=== PATIENT | female | born 1955 | race Caucasian/White ===

== ENCOUNTER 2016-10-02 21:11 | Emergency (ER) | payer OTHER ==
[~2016-10-02] VITALS: Ht 172.7 cm; Wt 111.0 kg
[~2016-10-02 21:11] MED LIST: DICL50TA2 PO; HYDR-2768 PO; SYNT175T PO
[2016-10-02 21:15] VITALS: BP 191/111; PULSE 85; RESP 18; TEMP 97.9; O2SAT 97
[2016-10-02 21:37] VITALS: BP 196/94; PULSE 77; RESP 20; O2SAT 96
--- NOTE | 2016-10-02 21:55 | PD ---
HPI Chief Complaint: Edema Time Seen by Provider: 21:51 Travel History International Travel<30 days: No Contact w/Intl Traveler<30days: No Traveled to known affect area: No History of Present Illness HPI The patient is a 60-year-old female that complains of left calf pain and swelling since this weekend. The patient denies any fever, shortness of breath , chest pain or hemoptysis. She has never had deep vein thromboses in the past. She states she has been doing a lot of driving the last few weeks between here and [place]. PFSH Past Medical History Arthritis: Yes Anxiety: Yes Cancer: No Cardiovascular Problems: Yes (HTN) High Cholesterol: Yes Diminished Hearing: No Endocrine: Yes Gastrointestinal Disorders: Yes (CURRENT POLYP) Genitourinary: No Hypertension: Yes Immune Disorder: No Musculoskeletal: Yes Neurologic: No Psychiatric: Yes (CLAUSTRAPHOBIA) Reproductive: No Respiratory: No Immunizations Current: No Thyroid Disease: Yes Tetanus Vaccination: Unknown ?: Not Menopausal: Yes Past Surgical History Abdominal Surgery: Yes (REMOVED PART OF COLON IN 2010) Cholecystectomy: Yes Gynecologic Surgery: Yes (C SECTION) Other Surgery: Yes Social History Alcohol Use: Yes (OCCASIONAL) Tobacco Use: No (QUIT 1997) Substance Use: No Allergies-Medications (Allergen,Severity, Reaction): Coded Allergies: Colyte (Verified Allergy, Severe, Hives, 10/02/16) PEANUTS (Verified Allergy, Mild, Anaphylaxis, 10/02/16) Sulfa (Verified Allergy, Unknown, RASH, 10/02/16) Reported Meds & Prescriptions Reported Meds & Active Scripts Active Reported Levothyroxine (Levothyroxine Sodium) 125 Mcg Tab 125 Mcg PO DAILY Doxycycline (Doxycycline (Monohydrate)) 100 Mg Cap 100 Mg PO DAILY Hydrochlorothiazide 25 Mg Tab 25 Mg PO DAILY Review of Systems Except as stated in HPI: all other systems reviewed are Neg Physical Exam Narrative GENERAL: The patient is alert, oriented 3 in minimal apparent distress with her left calf vein area initial vital signs show blood pressure 191/111 but repeat show 196/94 but the rest the vital signs are normal. SKIN: Focused skin assessment warm/dry. HEAD: Atraumatic. Normocephalic. EYES: Pupils equal and round. No scleral icterus. No injection or drainage. ENT: No nasal bleeding or discharge. Mucous membranes pink and moist. NECK: Trachea midline. No JVD. CARDIOVASCULAR: Regular rate and rhythm. No murmur appreciated. RESPIRATORY: No accessory muscle use. Clear to auscultation. Breath sounds equal bilaterally. GASTROINTESTINAL: Abdomen soft, non-tender, nondistended. Hepatic and splenic margins not palpable. MUSCULOSKELETAL: No obvious deformities. No clubbing. No cyanosis. There is redness circumferentially around the mid calf as well as tenderness of the left calf. No cord is palpated in the calf. There is no tenderness on the deep veins of the left upper extremity. Good capillary refill and pulses are felt on the left dorsalis pedis/left foot. NEUROLOGICAL: Awake and alert. No obvious cranial nerve deficits. Motor grossly within normal limits. Normal speech. PSYCHIATRIC: Appropriate mood and affect; insight and judgment normal. Data Data Last Documented VS Vital Signs Date Time Temp Pulse Resp B/P Pulse Ox O2 Delivery O2 Flow Rate FiO2 10/02/16 21:37 20 96 Room Air 10/02/16 21:37 77 196/94 10/02/16 21:15 97.9 Orders Us Leg Venous Doppler (10/02/16 21:51) MDM Medical Decision Making Medical Screen Exam Complete: Yes Emergency Medical Condition: Yes Medical Record Reviewed: Yes Interpretation(s) The ultrasound shows no evidence of DVT. Differential Diagnosis DVT, cellulitis left lower extremity, allergic reaction left lower extremity, contact dermatitis left lower extremity Narrative Course The patient has cellulitis of the left lower extremity. There is no ultrasound evidence for DVT. Plan: The patient will be put on doxycycline and clindamycin. She needs to elevate her leg above her heart as much as possible. Additional Instructions: Elevate the leg above your heart and take the antibiotics. Both antibiotics are for 10 days. Follow-up with your primary care physician next week. Med/Other Pt SpecificInfo: Prescription(s) given Scripts Clindamycin (Cleocin)300 Mg [id number] Mg PO Q6H 10 Days Ref 0 Prov:Mansoor Garrett MD 10/02/16 Doxycycline Hyclate 100 Mg [id number] Mg PO BID #20 CAP Ref 0 Prov:Mansoor Garrett MD 10/02/16 Disposition: 01 DISCHARGE HOME Condition: Stable Mansoor Garrett MD Oct 02, 2016 21:55
[2016-10-02] MEDS ORDERED: HYDR25TA5 PO (21:57)
[2016-10-02] MEDS ORDERED: DOXY1CAP91 PO (21:57)
[2016-10-02] MEDS ORDERED: LEVO125T4 PO (22:06)
--- NOTE | 2016-10-02 22:48 | RADRPT ---
EXAM DATE/TIME: 10/02/2016 22:20 [facility] COMPARISON: No previous studies available for comparison. INDICATIONS : Left leg swelling. MEDICAL HISTORY : Hypertension. Hypercholesterolemia. Thyroid disease. Gastrointestinal polyp. Arthritis. Endocrine disorder. Neutrapenia. SURGICAL HISTORY : Cholecystectomy. section. Colon resection. ENCOUNTER: Initial ACUITY: 4 - 6 days PAIN SCORE: 3/10 LOCATION: Left leg. TECHNIQUE: Venous ultrasound of the leg was performed from the inguinal ligament to the proximal calf. Real-clairssa e, color Doppler and spectral tracing, compression and augmentation techniques were used. FINDINGS: There is normal compressibility of the deep venous system from the inguinal region to the proximal ca lf. No echogenic clot is seen in the lumen of the common femoral, femoral, popliteal, and posterior tibial veins. There is a normal response of the venous system to proximal and distal augmentation an d respiration. CONCLUSION: Negative exam with no evidence of deep venous thrombosis. Jaylen Cole MD on October 02, 2016 at 22:46 Board Certified Radiologist. This report was verified electronically.
[2016-10-02 22:50] VITALS: BP 143/77; PULSE 78; RESP 18; O2SAT 96
[2016-10-02] MEDS ORDERED: CLEO300C2 PO (23:05)
[2016-10-02] MEDS ORDERED: DOXY100C PO (23:05)
[2016-10-02] MEDS ORDERED: DOXYCYCLINE HYCLATE 100 MG CAP PO ONE (23:15)
[2016-10-02] MEDS ORDERED: CLINDAMYCIN 150 MG CAP PO ONE (23:15)
== END 2016-10-02 23:51 | disposition home or self-care (01) ==
LOC: PHED 21:11
DX: L03.116 Cellulitis of left lower limb (principal); I10 Essential (primary) hypertension; E78.00 Pure hypercholesterolemia, unspecified; E07.9 Disorder of thyroid, unspecified; Z90.49 Acquired absence of other specified parts of digestive tract
CPT/HCPCS: 93971; 99284